=== PATIENT | female | born 1985 | race Caucasian/White ===

== ENCOUNTER 2020-01-18 17:13 | Outpatient (CLI) | payer OTHER, SELFPAY ==
[2020-01-18 17:38] LABS: Hematocrit 40.7 % (37.0-47.0); Hemoglobin 13.7 g/dL (12.0-15.0); Mean Corpuscular HGB Conc 33.7 g/dl (32-36); Mean Corpuscular Hemoglobin 30.4 pg (26-34); Mean Corpuscular Volume 90.2 fl (80-100); Mean Platelet Volume 10.2 fl (7.4-10.4); Platelet Count Result 333 k/mm3 (150-375); Red Blood Count 4.51 M/mm3 (4.2-5.4); Red Cell Distribution Width 11.7 % (11.5-14.5); White Blood Count 9.4 K/mm3 (4.5-10.0)
[2020-01-18 17:54] LABS: Anion Gap 9 mmol/L (8-16); Blood Urea Nitrogen 15 mg/dL (7-17); CRP < 0.5 mg/dL (<1.0); Calcium 8.9 mg/dL (8.4-10.2); Carbon Dioxide 25 mmol/L (22-30); Chloride 105 mmol/L (98-107); Estimated Glomerular Filt Rate > 60; Glucose 95 mg/dL (65-105); Sodium 139 mmol/L (137-145)
[2020-01-18 18:12] LABS: Erythrocyte Sedimentation Rate 16 mm/hr (0-20)
== END 2020-01-18 17:14 | disposition home or self-care (01) ==
LOC: ANHIMG 17:17
PROVIDERS: PCP Family Medicine; Visit Provider Nurse Practitioner Family
DX: R51.9 Headache, unspecified (principal)
CPT/HCPCS: 36415; 80048; 84443; 85027; 85652; 86140

== ENCOUNTER 2021-02-06 16:01 | Emergency (ER) | payer OTHER, SELFPAY ==
--- NOTE | ~2021-02-06 | XR_ITS ---
XR ankle RT min 3V 02/06/2021 16:16 INDICATION: Right ankle pain PROCEDURE: 4 views right ankle COMPARISON: No prior studies for comparison. FINDINGS: Fracture, dislocation or subluxation is not identified. The soft tissues appear within norm al limits. No foreign bodies are identified. IMPRESSION: 1: NO ACUTE BONE OR JOINT ABNORMALITY IDENTIFIED. Reviewed, dictated and finalized at location A. [employer]
[2021-02-06 16:10] VITALS: BP 123/78; PULSE 110; RESP 16; TEMP 36.5; O2SAT 99
--- NOTE | 2021-02-06 16:26 | ED.LOWEXIN ---
HPI - Extremity Injury (Lower) General Chief Complaint: Extremity Injury, Lower Stated Complaint: Rt Ankle Pain Source: patient and RN notes reviewed Mode of arrival: ambulatory History of Present Illness HPI Narrative: This is a 35-year-old female that presents to urgent care with right ankle pain and swelling. According to patient she was at a trampoline park with her children when her ankle twisted outward and she heard a pop. Patient notes that she experienced pain with weightbearing, to her posterior ankle and lateral ankle area. The patient denies SOB, CP, palpitation, extremity numbness, lightheadedness, dizziness, constipation, diarrhea, chills, or fever. MD complaint: ankle injury Related Data Home Medications Medication Instructions Recorded Confirmed escitalopram oxalate 20 mg PO DAILY 02/06/21 02/06/21 valacyclovir 500 mg PO PRN PRN 02/06/21 02/06/21 Allergies Allergy/AdvReac Type Severity Reaction Status Date / Time No Known Allergies Allergy Verified 02/06/21 16:06 Review of Systems Review of Systems: A 14 organ system Review of Systems was performed and pertinent positives included in the HPI, otherwise remaining ROS is negative. [facility] Past Medical History Medical History (Updated 02/06/21 @ 16:26 by ARACELI Fierro) BMI 26.0-26.9,adult COVID-19 Family History Family History Other Diabetes mellitus Social History Social History Smoking status: Never smoker Alcohol intake: current Exam Narrative: GENERAL: This is a well-nourished, well-developed patient, in no apparent distress. HEAD: normocephalic, atraumatic. EYES: PERRL. Sclera clear/white. Vision is grossly intact. EARS: External ears normal, auditory canals clear and without drainage, TMs normal without perforation. Hearing grossly intact. NOSE: External nose normal with no obvious nasal discharge, nares without redness, no rhinorrhea. THROAT: Mucous membranes moist, posterior pharynx clear. NECK: Neck supple, non-tender without lymphadenopathy, masses or thyromegaly. CARDIOVASCULAR: Regular rate and rhythm without murmurs, gallops, or rubs. RESPIRATORY: Clear to auscultation. Breath sounds equal bilaterally. No wheezes, rales, or rhonchi. GASTROINTESTINAL: Abdomen soft, non-tender, nondistended. Bowel sounds are active. No hepato-splenomegaly, or palpable masses. No guarding. SKIN: warm, intact with no suspicious lesions or rash, good texture and turgor. NEURO: awake, alert, and oriented to person, place and time. There were no obvious focal neurologic abnormalities. Steady gait EXTREMITIES: Normal range of motion pain to the right ankle with edema. No calf tenderness. Negative Homans sign bilaterally. Pulses palpable no neurovascular deficiency BACK: Nontender without deformity or crepitance. No flank tenderness. Course Course Emergency Course: Patient will be treated for sprain with Flexeril and ibuprofen and informed patient that if her pain does not improve she will need to give further diagnostic test such as a CT . Vital Signs Vital signs: Vital Signs Temperature 97.7 F 02/06/21 16:10 Pulse Rate 110 H 02/06/21 16:10 Respiratory Rate 16 02/06/21 16:10 Blood Pressure 123/78 02/06/21 16:10 Pulse Oximetry 99 02/06/21 16:10 Temperature 97.7 F 02/06/21 16:10 Pulse Rate 110 H 02/06/21 16:10 Respiratory Rate 16 02/06/21 16:10 Blood Pressure 123/78 02/06/21 16:10 Pulse Oximetry 99 02/06/21 16:10 MDM - Extremity Injury (Lower) Differential Diagnosis Differential diagnosis: Likely ankle sprain and strain, ankle fracture and other (Ligament tear) Discharge Plan Discharge Clinical Impression: Ankle sprain and strain Patient Disposition: Home, Self-Care Condition: Stable Instructions: Antibiotic Form, Ankle Sprain (ED) Additional Instructions: Ice and heat
== END 2021-02-06 16:45 | disposition home or self-care (01) ==
PROVIDERS: Emergency Provider Nurse Practitioner; PCP Family Medicine
DX: S93.401A Sprain of unspecified ligament of right ankle, initial encounter (principal); S96.911A Strain of unspecified muscle and tendon at ankle and foot level, right foot, initial encounter; X50.9XXA Other and unspecified overexertion or strenuous movements or postures, initial encounter; Y93.44 Activity, trampolining
CPT/HCPCS: 73610; 99213; G0463

== ENCOUNTER 2022-02-20 15:57 | Emergency (ER) | payer OTHER, SELFPAY ==
[2022-02-20 16:16] VITALS: BP 119/81; PULSE 84; RESP 16; TEMP 37.1; O2SAT 100
--- NOTE | 2022-02-20 16:35 | ED.URI ---
HPI - URI/Sore Throat General Chief Complaint: Upper Respiratory Infection Stated Complaint: headache,sore throat,dileep Time Seen by Provider: 02/20/22 16:39 Source: patient and RN notes reviewed Mode of arrival: ambulatory Limitations: no limitations History of Present Illness HPI Narrative: 36-year-old female to concerns for a to history of sinus congestion, drainage, cough, general malaise, low-grade fever. Reports she has taken [id number] medications without relief. Reports her children had similar symptoms and they have started getting better. MD elicited complaint: cough and sore throat Related Data Home Medications Medication Instructions Recorded Confirmed escitalopram oxalate 20 mg tablet 20 mg PO DAILY 02/06/21 02/20/22 etonogestrel 68 mg subdermal 68 mg subdermal USEASDIRECTD 02/06/21 02/20/22 implant (Nexplanon) valacyclovir 500 mg tablet 500 mg PO PRN PRN Cold Sores 02/06/21 02/20/22 esomeprazole magnesium 40 mg 40 mg PO DAILY 02/20/22 02/20/22 capsule,delayed release Allergies Allergy/AdvReac Type Severity Reaction Status Date / Time No Known Allergies Allergy Verified 02/20/22 16:38 Review of Systems Review of Systems: CONSTITUTIONAL: Reports malaise, low-grade fever. EYES: Denies visual changes, redness, or discharge. ENT: Reports rhinorrhea, congestion, sore throat. Sinus pain, otalgia CARDIOVASCULAR: Denies chest pain, palpitations, or edema. RESPIRATORY: Reports cough. Denies dyspnea. GASTROINTESTINAL: Denies abdominal pain, nausea, vomiting, diarrhea SKIN: Denies rash or itching. MUSCULOSKELETAL: Reports myalgia. NEUROLOGIC: Denies headache. All systems reviewed & are unremarkable except as noted in HPI and below PMFSH Past Medical History Medical History (Updated 02/20/22 @ 16:45 by Bhumika Armas NP) BMI 26.0-26.9,adult COVID-19 Family History Family History Other Diabetes mellitus Social History Social History Smoking status: Never smoker Alcohol intake: current Comments At time of signature, agree with nursing past medical, surgical, social and family history. There is no relevant family history pertinent to the presenting complaint Exam Narrative: GENERAL: Well-appearing, well-nourished, and in no acute distress. HEAD: Normocephalic EYES: PERRLA, conjunctivae clear ENT: Nares clear, turbinates edematous and erythematous, clear discharge. Mucous membranes moist. TM pearly wynn with dull light reflex bilaterally; no tragal tenderness. Oropharynx not erythematous without lesions. Tonsils not enlarged and without exudate, no drooling, no hoarseness, no trismus, uvula midline. NECK: Supple. No lymphadenopathy CHEST: Clear to auscultation, breath sounds equal. No wheezing, rhonchi, rales, or stridor. No respiratory distress, speaks in full sentences. HEART: Regular rate and rhythm. No murmur heard. SKIN: Warm, dry, no rash. NEURO: Alert and oriented x3. PSYCH: Normal mood and affect Course Course Emergency Course: Patient is aware of diagnosis, understands and agrees to treatment plan. Anticipatory guidance given. Patient agrees to follow-up as directed and is aware of reasons to seek care at the emergency department. Portions of this record may have been created with voice recognition software Level of Care: Express Care Visit Vital Signs Vital signs: Vital Signs Temperature 98.7 F 02/20/22 16:16 Pulse Rate 84 02/20/22 16:16 Respiratory Rate 16 02/20/22 16:16 Blood Pressure 119/81 02/20/22 16:16 Pulse Oximetry 100 02/20/22 16:16 Temperature 98.7 F 02/20/22 16:16 Pulse Rate 84 02/20/22 16:16 Respiratory Rate 16 02/20/22 16:16 Blood Pressure 119/81 02/20/22 16:16 Pulse Oximetry 100 02/20/22 16:16 Reviewed. MDM - URI/Sore Throat MDM Narrative Medical decision making narrative: Differential
== END 2022-02-20 16:50 | disposition home or self-care (01) ==
PROVIDERS: Emergency Provider Nurse Practitioner
DX: J11.1 Influenza due to unidentified influenza virus with other respiratory manifestations (principal); Z20.822 Contact with and (suspected) exposure to COVID-19; Z86.16 Personal history of COVID-19
CPT/HCPCS: 87426; 87804; 99213; C9803; G0463

== ENCOUNTER 2022-12-12 08:55 | Emergency (ER) | payer OTHER, SELFPAY ==
--- NOTE | 2022-12-12 09:03 | ED.URI ---
HPI - URI/Sore Throat General Chief Complaint: Upper Respiratory Infection Stated Complaint: throat pain/swollen,body aches,headaches Time Seen by Provider: 12/12/22 09:04 Source: patient Mode of arrival: ambulatory Limitations: no limitations History of Present Illness HPI Narrative: Radha is a 37-year-old female patient presenting to clinic today with complaints of sore throat, lymph node swelling, body aches, fever, and headaches x1 day. She reports her symptoms started yesterday. Has taken [id number] DayQuil and Mucinex with some relief. Rates her pain currently a 3 out of 10. 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 Patient denies any rash, visual changes, dizziness, cough, shortness of breath, chest pain, palpitations, nausea, vomiting, diarrhea, constipation, abdominal pain, or any urinary issues. PMFSH Past Medical History Medical History BMI 26.0-26.9,adult COVID-19 Family History Family History Other Diabetes mellitus Social History Social History Smoking status: Never smoker Alcohol intake: current Comments At the time of my signature, I reviewed and agree with the nursing past medical, surgical, social, and family history. There is no relevant family history pertinent to the patient complaint. Exam Narrative: General: Well-developed, well nourished, in no apparent distress Head: Normocephalic, atraumatic Eyes: Pupils equally round and reactive to light bilaterally, EOM intact, sclera and conjunctive clear, no discharge, lids normal Ears: TMs intact and clear, ear canals clear, no drainage, grossly hearing normal. Nose: Nares patent, clear discharge, no inflammation, no sinus tenderness. Mouth: Oral pharynx red with bilateral tonsillar swelling without lesions or masses, good dentition, MMM. Neck: Supple, trachea midline, enlargement of anterior cervical nodes, no thyroid masses or goiter palpable. Cardio: Regular rate and rhythm, s1 and s2 normal, no murmur appreciated. Resp: Clear to auscultation bilaterally, no rhonchi, rales, wheezing or rubs Course Course Emergency Course: Portions of this record may have been created with voice recognition software. Level of Care: Express Care Visit Vital Signs Vital signs: Vital signs reviewed MDM - URI/Sore Throat MDM Narrative Medical decision making narrative: At the time of visit patient is resting comfortably on the exam table. Strep screen was obtained was positive. Prescription for amoxicillin was sent to the pharmacy and supportive measures were discussed with the patient she voiced understanding discharge instructions and she agrees to treatment plan. Differential Diagnosis Differential diagnosis: Likely upper respiratory infection, otitis media, sinusitis, viral infection, bronchitis, influenza, pharyngitis and other (COVID) Discharge Plan Discharge Clinical Impression: Acute streptococcal pharyngitis Patient Disposition: Home, Self-Care Condition: Stable Instructions: Antibiotic Form, Strep Throat (ED) Additional Instructions: Take prescription medications only as prescribed-amoxicillin Change your toothbrush in 24 hours after initiation of the antibiotics. Increase fluids and stay well hydrated Tylenol/mot
[2022-12-12 09:11] VITALS: BP 127/77; PULSE 85; RESP 18; TEMP 36.7; O2SAT 99
== END 2022-12-12 09:15 | disposition home or self-care (01) ==
PROVIDERS: Emergency Provider Nurse Practitioner Family
DX: J02.0 Streptococcal pharyngitis (principal); Z86.16 Personal history of COVID-19
CPT/HCPCS: 87880; 99213; G0463

== ENCOUNTER 2023-06-06 17:11 | Emergency (ER) | payer OTHER, SELFPAY ==
[2023-06-06 17:20] VITALS: BP 119/77; PULSE 105; RESP 16; TEMP 37.2; O2SAT 99
--- NOTE | 2023-06-06 17:22 | ED.GENADULT ---
HPI - General Adult General Chief complaint: Upper Respiratory Infection Stated complaint: Congestion,Body Aches,Headache,Cough Time Seen by Provider: 06/06/23 17:22 Source: patient Mode of arrival: ambulatory Limitations: no limitations History of Present Illness HPI narrative: 37-year-old female presents to clinic today with complaints of fevers, chills, sweats, body aches, and cough that keeps her up at night. Patient states that her daughter tested positive for flu B last Wednesday and her symptoms started Wednesday. patient has been taking Tylenol, ibuprofen, and [id number] cold and flu medication but she states none of the medications have seem to help especially with her cough. patient denies nausea, vomiting, diarrhea, and abdominal pain. Related Data Home Medications Medication Instructions Recorded Confirmed escitalopram oxalate 20 mg tablet 20 mg PO DAILY 02/06/21 06/06/23 valacyclovir 500 mg tablet 500 mg PO PRN PRN Cold Sores 02/06/21 06/06/23 Allergies Allergy/AdvReac Type Severity Reaction Status Date / Time No Known Allergies Allergy Verified 06/06/23 17:33 Review of Systems Review of Systems: CONSTITUTIONAL: Positive fever, chills, sweats, and body aches. EYES: Denies visual changes, redness, or discharge. ENT: positive rhinorrhea, congestion, sore throat, denies otalgia. CARDIOVASCULAR: Denies chest pain, palpitations, or edema. RESPIRATORY: positive cough, denies dyspnea. GASTROINTESTINAL: Denies abdominal pain, nausea, vomiting, or diarrhea. GENITOURINARY: Denies dysuria or hematuria. SKIN: Denies rash or itching. MUSCULOSKELETAL: Denies back pain, joint pain, or myalgia. NEUROLOGIC: Denies headache, numbness, or weakness. PSYCHIATRIC: Denies anxiety or depression. [facility] Past Medical History Medical History BMI 26.0-26.9,adult COVID-19 Family History Family History Other Diabetes mellitus Social History Social History Smoking status: Never smoker Alcohol intake: current Comments At the time of my signature I agree with nursing past medical history, surgical, social, and family history. There is no relevant family history pertinent to the presenting complaint. Exam Narrative: GENERAL: ill-appearing, well-nourished, and is crying due to discomfort. HEAD: Normocephalic, atraumatic. EYES: PERRLA and EOMI. ENT: Nares clear, positive rhinorrhea , negative epistaxis. Mucous membranes moist. to bilateral TMs pearly wynn with effusion with air bubbles but without erythema. posterior oropharynx is erythematous without exudate. NECK: Supple. No lymphadenopathy CHEST: Clear to auscultation. No respiratory distress. HEART: Regular rate and rhythm. No murmur heard. Normal peripheral pulses. ABDOMEN: Soft, nontender, nondistended, normal active bowel sounds. EXTREMITIES: Normal range of motion. No edema. SKIN: Warm, dry, no rash. NEURO: No focal deficits. Alert and oriented x3. Course Course Level of Care: Express Care Visit Vital Signs Vital signs: Vital Signs Temperature 37.2 C 06/06/23 17:20 Pulse Rate 105 H 06/06/23 17:20 Respiratory Rate 16 06/06/23 17:20 Blood Pressure 119/77 06/06/23 17:20 Pulse Oximetry 99 06/06/23 17:20 Oxygen Delivery Room Air 06/06/23 17:20 Temperature 37.2 C 06/06/23 17:20 Pulse Rate 105 H 06/06/23 17:20 Respiratory Rate 16 06/06/23 17:20 Blood Pressure 119/77 06/06/23 17:20 Pulse Oximetry 99 06/06/23 17:20 Oxygen Delivery Room Air 06/06/23 17:20 vital signs reviewed. Medical Decision Making MDM Narrative Medical decision making narrative: due to patient's history of symptoms, presents symptoms, physical exam findings, and positive influenza B test patient is being discharged to home to self-care and symptom manage
== END 2023-06-06 17:56 | disposition home or self-care (01) ==
PROVIDERS: Emergency Provider Nurse Practitioner Family; PCP Nurse Practitioner
DX: J10.1 Influenza due to other identified influenza virus with other respiratory manifestations (principal); R05.9 Cough, unspecified; Z86.16 Personal history of COVID-19
CPT/HCPCS: 87426; 87804; 99213; G0463

== ENCOUNTER 2023-07-31 19:22 | Emergency (ER) | payer OTHER, SELFPAY ==
[2023-07-31 19:34] VITALS: BP 133/83; PULSE 100; RESP 16; TEMP 36.6; O2SAT 100
--- NOTE | 2023-07-31 19:43 | ED.URI ---
HPI - URI/Sore Throat General Chief Complaint: Upper Respiratory Infection Stated Complaint: strep Time Seen by Provider: 07/31/23 19:37 Source: patient and RN notes reviewed Mode of arrival: ambulatory Limitations: no limitations History of Present Illness HPI Narrative: Patient presents today complaining of sore throat, body aches, chills since yesterday. Pain increases with swallowing. She has been taking ibuprofen without much relief and currently rates her pain 6/10. Related Data Home Medications Medication Instructions Recorded Confirmed bupropion HCl 150 mg 24 hr tablet, 150 mg PO DAILY 07/31/23 07/31/23 extended release esomeprazole magnesium 40 mg 40 mg PO PRN PRN Acid Reflux 07/31/23 07/31/23 capsule,delayed release valacyclovir 500 mg tablet 500 mg PO PRN PRN Cold Sores 07/31/23 07/31/23 Allergies Allergy/AdvReac Type Severity Reaction Status Date / Time No Known Allergies Allergy Verified 07/31/23 19:29 Review of Systems Review of Systems: CONSTITUTIONAL: Denies fever, or sweats.+ body aches, chills EYES: Denies visual changes, redness, or discharge. ENT: Denies rhinorrhea, congestion, or otalgia.+ sore throat CARDIOVASCULAR: Denies chest pain, palpitations, or edema. RESPIRATORY: Denies cough or dyspnea. GASTROINTESTINAL: Denies abdominal pain, nausea, vomiting, or diarrhea. GENITOURINARY: Denies dysuria or hematuria. SKIN: Denies rash, itching, or wounds. MUSCULOSKELETAL: Denies back pain, joint pain, or myalgia. NEUROLOGIC: Denies headache, numbness, tingling, or weakness. PSYCH: Denies depression or anxiety. [facility] Past Medical History Medical History BMI 26.0-26.9,adult COVID-19 Family History Family History Other Diabetes mellitus Social History Social History Smoking status: Never smoker Alcohol intake: current Comments At time of signature, I have reviewed and agree with nursing past medical, surgical, social and family history unless otherwise noted. Please see nursing chart for further information. There is no relevant family history pertinent to the presenting complaint Exam Narrative: GENERAL: Mildly ill-appearing, well-nourished, and in no acute distress. HEAD: Normocephalic, atraumatic. EYES: EOMI. No redness or drainage. Conjunctivae normal. ENT: Mucous membranes pink and moist. Nares clear. No rhinorrhea. TMs normal bilaterally. Throat erythematous without edema or exudate. Uvula midline. NECK: Normal AROM. Supple. Bilateral anterior and right posterior cervical chain lymphadenopathy CHEST: No respiratory distress. Clear to auscultation. HEART: Regular rate and rhythm. No murmur appreciated. EXTREMITIES: Normal range of motion. No edema. SKIN: Warm, dry, no rash. Capillary refill normal. Normal skin turgor. NEURO: No focal deficits. Alert and oriented x3. Gait steady. PSYCH: Normal affect. No signs of depression or anxiety. Course Course Level of Care: Express Care Visit Vital Signs Vital signs: Vital Signs Temperature 97.9 F 07/31/23 19:34 Pulse Rate 100 07/31/23 19:34 Respiratory Rate 16 07/31/23 19:34 Blood Pressure 133/83 07/31/23 19:34 Pulse Oximetry 100 07/31/23 19:34 Oxygen Delivery Room Air 07/31/23 19:34 Temperature 97.9 F 07/31/23 19:34 Pulse Rate 100 07/31/23 19:34 Respiratory Rate 16 07/31/23 19:34 Blood Pressure 133/83 07/31/23 19:34 Pulse Oximetry 100 07/31/23 19:34 Oxygen Delivery Room Air 07/31/23 19:34 Reviewed MDM - URI/Sore Throat MDM Narrative Medical decision making narrative: Rapid strep positive. Prescription for amoxicillin sent to pharmacy. Anticipatory guidance given. Differential Diagnosis Differential diagnosis: Likely upper respiratory infection, viral infection, pha
== END 2023-07-31 19:48 | disposition home or self-care (01) ==
PROVIDERS: Emergency Provider Nurse Practitioner; PCP Nurse Practitioner
DX: J02.0 Streptococcal pharyngitis (principal); Z86.16 Personal history of COVID-19
CPT/HCPCS: 99213; G0463